=== PATIENT | female | born 1980 | race Caucasian/White ===

== ENCOUNTER 2019-06-27 14:43 | Emergency (ER) | payer OTHER ==
[~2019-06-27] VITALS: Ht 167.6 cm; Wt 111.1 kg
[~2019-06-27 14:43] MED LIST: CALCIUM500 M1 PO; CELEBREX100 MG PO; CELEXA10 MG PO; GAS RELIEF80 MG PO; IBUPROFEN800 MG PO; IRON18 MG PO; MULTI VITAMIN1 EACH PO; NEURONTIN300 MG PO; PERCOCET 5-3251 EACH PO; PROMETHAZINE HC25 M1 PO; PYRIDIUM200 MG PO; ULTRAM50 MG PO; VITAMIN D400 UNIT PO
--- OUTSIDE RECORDS SUMMARY | 2019-06-27 14:46 | XMS ---
PreManage Notification: HERMAN REEVES Security Telephone Triage Nurse Events No recent Security Events currently on file CRITERIA MET - [facility] - 2 Visits in 30 Days CARE PROVIDERS Hi Cisneros Community Health Worker 12/21/2018-Negrito Hood - PHONE: [phone] NEO SHAFFER Primary Care Current PHONE: Unknown MELI DARDEN Primary Care [facility] PHONE: Unknown Lizzy has no Care Guidelines for this patient. E.D. VISIT COUNT (12 MO.) 6 [facility] 1 VICKY AndersonMelisa TOTAL 7 NOTE: Visits indicate total known visits. ED/UCC VISIT TRACKING (12 MO.) 06/27/2019 14:44 [facility] [place] TYPE: Emergency COMPLAINT: - ANKLE, FINGER PAIN- INJ 06/26/2019 19:00 [facility] [place] TYPE: Emergency DIAGNOSES: - FALL - Contusion of left ankle, initial encounter 04/04/2019 20:40 [facility] [place] TYPE: Emergency DIAGNOSES: - bilateral knee pain - Pain in left knee - Pain in right knee 02/10/2019 22:19 [facility] [place] TYPE: Emergency DIAGNOSES: - congested cough - Pneumonia, unspecified organism 12/11/2018 23:22 [facility] [place] TYPE: Emergency DIAGNOSES: - Pain in left knee - L KNEE PAIN 11/30/2018 20:55 [facility] [place] TYPE: Emergency DIAGNOSES: - Pain in right knee - INJURY ON R KNEE 09/13/2018 02:42 [facility] [place] TYPE: Emergency DIAGNOSES: - Other viral agents as the cause of diseases classified elsewhere - Acute upper respiratory infection, unspecified - COUGHING,SORE THROAT,DIARRHEA INPATIENT VISIT TRACKING (12 MO.) No inpatient visits to display in this time frame [id number]
== END 2019-06-27 14:55 | disposition home or self-care (01) ==
LOC: ED 14:43
DX: M25.572 Pain in left ankle and joints of left foot (principal)

== ENCOUNTER 2021-06-16 20:48 | Emergency (ER) | payer OTHER ==
[~2021-06-16] VITALS: Ht 167.6 cm; Wt 112.5 kg
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
[2021-06-17] MEDS ORDERED: BUSPIRONE HCL5 MG PO (00:58)
[2021-06-17] MEDS ORDERED: DULOXETINE HCL30 MG PO (00:58)
== END 2021-06-17 02:12 | disposition home or self-care (01) ==
LOC: ED 20:48
DX: S96.912A Strain of unspecified muscle and tendon at ankle and foot level, left foot, initial encounter (principal); S76.012A Strain of muscle, fascia and tendon of left hip, initial encounter; S80.02XA Contusion of left knee, initial encounter; W19.XXXA Unspecified fall, initial encounter; Z88.0 Allergy status to penicillin; Z88.5 Allergy status to narcotic agent; Z88.6 Allergy status to analgesic agent; Z79.899 Other long term (current) drug therapy
CPT/HCPCS: 73502; 73560; 73610; 99283-25

== ENCOUNTER 2021-11-14 00:47 | Emergency (ER) | payer OTHER ==
[~2021-11-14] VITALS: Ht 167.6 cm; Wt 108.9 kg
[~2021-11-14 00:47] MED LIST changes: +BUSPIRONE HCL5 MG PO; +DULOXETINE HCL30 MG PO
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
[2021-11-14] MEDS ORDERED: medrol dose pack (02:32)
[2021-11-14] MEDS ORDERED: PERCOCET 5-3251 EACH PO (02:32)
== END 2021-11-14 02:45 | disposition home or self-care (01) ==
LOC: ED 00:47
DX: S39.012A Strain of muscle, fascia and tendon of lower back, initial encounter (principal); W01.10XA Fall on same level from slipping, tripping and stumbling with subsequent striking against unspecified object, initial encounter; J45.909 Unspecified asthma, uncomplicated; E66.9 Obesity, unspecified; Z88.0 Allergy status to penicillin; Z88.6 Allergy status to analgesic agent; Z88.8 Allergy status to other drugs, medicaments and biological substances; Z88.5 Allergy status to narcotic agent; Z79.899 Other long term (current) drug therapy
CPT/HCPCS: 72131; 96372; 99283-25; J1170; J3360

== ENCOUNTER 2021-11-24 21:33 | Emergency (ER) | payer OTHER ==
[~2021-11-24] VITALS: Ht 167.6 cm; Wt 106.1 kg
[~2021-11-24 21:33] MED LIST changes: +medrol dose pack
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
[2021-11-25] MEDS ORDERED: CIPRO500 MG PO (00:46)
[2021-11-25] MEDS ORDERED: FLOMAX0.4 MG PO (00:46)
[2021-11-25] MEDS ORDERED: ONDANSETRON ODT8 MG PO (00:46)
[2021-11-25] MEDS ORDERED: PERCOCET 5-3251 EACH PO (00:46)
== END 2021-11-25 01:03 | disposition home or self-care (01) ==
LOC: ED 21:33
DX: N20.0 Calculus of kidney (principal); J45.909 Unspecified asthma, uncomplicated; E66.9 Obesity, unspecified; Z88.0 Allergy status to penicillin; Z20.822 Contact with and (suspected) exposure to COVID-19; Z88.8 Allergy status to other drugs, medicaments and biological substances; Z88.5 Allergy status to narcotic agent; Z88.6 Allergy status to analgesic agent; Z79.899 Other long term (current) drug therapy
CPT/HCPCS: 36415; 74177; 80053; 81001; 85025; 96375; 96376; 99284-25; A9270; C9803; J2405; J3010; J7030; Q9967; U0003

== ENCOUNTER 2021-12-19 22:09 | Emergency (ER) | payer OTHER ==
[~2021-12-19] VITALS: Ht 167.6 cm; Wt 106.6 kg
[~2021-12-19 22:09] MED LIST changes: +CIPRO500 MG PO; +FLOMAX0.4 MG PO; +ONDANSETRON ODT8 MG PO
--- OUTSIDE RECORDS SUMMARY | 2021-12-19 22:12 | XMS ---
PreManage Notification: HERMAN REEVES Security Color Dipper Events No recent Security Events currently on file CRITERIA MET - [facility] - 2 Visits in 30 Days - PDMP CARE PROVIDERS NEO SHAFFER Nurse Practitioner: Family 06/28/2019-Current PHONE: Unknown Mily Oneill Community Health Worker 12/06/2020-Current PHONE: [phone] NARESH CARD [facility] 11/14/2021-Current PHONE: [phone] Care Guidelines exist for the following facilities: [facility] ( 09/13/2019 ) Care History Medical/Surgical 06/28/2019 [facility] - Patient is currently established with [facility]. If patient is seen in the ED during business hours. Please contact CHWs at [facility]. Care Recommendation: This patient has had [...] providing care. E.D. VISIT COUNT (12 MO.) [address] [facility] 1 [facility] ED 4 [facility]. TOTAL 6 NOTE: Visits indicate total known visits. ED/UCC VISIT TRACKING (12 MO.) 12/19/2021 22:09 [facility] [place] TYPE: Emergency COMPLAINT: - COUGH, SOB 11/24/2021 21:34 [facility] [place] TYPE: Emergency COMPLAINT: - ABD PAIN, N/V DIAGNOSES: - Other mcfp (current) drug therapy - Right lower quadrant pain - Allergy status to narcotic agent - Allergy status to other drugs, medicaments and biological substances - Unspecified asthma, uncomplicated - Obesity, unspecified - Calculus of kidney - Allergy status to penicillin - Allergy status to analgesic agent 11/14/2021 00:49 [facility] [place] TYPE: Emergency [...] Allergy status to narcotic agent - Other termite treater helper (current) drug therapy - Strain of muscle, fascia and tendon of lower back, initial encounter 06/16/2021 20:49 [facility] Pal TYPE: Emergency COMPLAINT: [...] of left hip, initial encounter - Other termite treater helper (current) drug therapy 06/01/2021 18:07 [facility] [place] TYPE: Emergency DIAGNOSES: - Skin Problem - Contusion of right forearm, initial encounter - Skin Complaint;Lumps 05/17/2021 17:40 [facility] No [place] TYPE: Emergency DIAGNOSES: - Contusion of right thumb without damage to nail, initial encounter - Unspecified fracture of navicular [scaphoid] bone of right wrist, initial encounter for closed fracture - Displaced fracture of proximal phalanx of unspecified finger, initial encounter for closed fracture - Thumb Injury INPATIENT VISIT TRACKING (12 MO.) No inpatient visits to display in this time frame [id number]
[2021-12-19] MEDS ORDERED: ALBUTEROL2.5 MG/3 M INH (22:21)
[2021-12-19] MEDS ORDERED: BUDESONIDE-FO10.2 GM (22:21)
[2021-12-19] MEDS ORDERED: ONDANSETRON ODT8 MG PO (23:21)
== END 2021-12-19 23:34 | disposition home or self-care (01) ==
LOC: ED 22:09
DX: J20.8 Acute bronchitis due to other specified organisms (principal); J45.909 Unspecified asthma, uncomplicated; E66.9 Obesity, unspecified; Z88.0 Allergy status to penicillin; Z88.8 Allergy status to other drugs, medicaments and biological substances; Z88.5 Allergy status to narcotic agent; Z88.6 Allergy status to analgesic agent; Z79.899 Other long term (current) drug therapy; Z79.51 Long term (current) use of inhaled steroids; Z20.822 Contact with and (suspected) exposure to COVID-19
CPT/HCPCS: 71045; 99285-25; A9270; C9803; U0003

== ENCOUNTER 2022-08-03 17:22 | Emergency (ER) | payer OTHER ==
[~2022-08-03] VITALS: Ht 167.6 cm; Wt 106.6 kg
[~2022-08-03 17:22] MED LIST changes: +ALBUTEROL2.5 MG/3 M INH; +BUDESONIDE-FO10.2 GM; +HYDROCODON-ACE1 EA10 PO
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
[2022-08-03] MEDS ORDERED: PREDNISONE20 MG PO (19:57)
== END 2022-08-03 20:17 | disposition home or self-care (01) ==
LOC: ED 17:22
DX: M79.672 Pain in left foot (principal); G89.29 Other chronic pain; M54.50 Low back pain, unspecified; J45.909 Unspecified asthma, uncomplicated; Z88.0 Allergy status to penicillin; Z88.6 Allergy status to analgesic agent; Z88.5 Allergy status to narcotic agent; Z88.8 Allergy status to other drugs, medicaments and biological substances; Z79.51 Long term (current) use of inhaled steroids; Z79.899 Other long term (current) drug therapy
CPT/HCPCS: 73630; 99283-25; A9270; J7512

== ENCOUNTER 2022-08-15 17:26 | Emergency (ER) | payer OTHER ==
[~2022-08-15] VITALS: Ht 167.6 cm; Wt 114.7 kg
[~2022-08-15 17:26] MED LIST changes: +PREDNISONE20 MG PO
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
[2022-08-15] MEDS ORDERED: HYDROCODON-ACE1 EA10 PO (18:00)
[2022-08-15] MEDS ORDERED: CLEOCIN HCL300 MG PO (18:00)
== END 2022-08-15 18:39 | disposition home or self-care (01) ==
LOC: ED 17:26
DX: K05.20 Aggressive periodontitis, unspecified (principal); J45.909 Unspecified asthma, uncomplicated; E66.9 Obesity, unspecified; E11.9 Type 2 diabetes mellitus without complications; Z88.8 Allergy status to other drugs, medicaments and biological substances; Z88.0 Allergy status to penicillin; Z88.6 Allergy status to analgesic agent; Z88.5 Allergy status to narcotic agent; Z79.899 Other long term (current) drug therapy
CPT/HCPCS: 99282; A9270

== ENCOUNTER 2022-08-19 00:17 | Emergency (ER) | payer OTHER ==
[~2022-08-19] VITALS: Ht 167.6 cm; Wt 111.0 kg
[~2022-08-19 00:17] MED LIST changes: +CLEOCIN HCL300 MG PO
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
== END 2022-08-19 01:01 | disposition home or self-care (01) ==
LOC: ED 00:17
DX: R53.81 Other malaise (principal); R53.83 Other fatigue; R11.0 Nausea; R09.81 Nasal congestion; J45.909 Unspecified asthma, uncomplicated; E11.9 Type 2 diabetes mellitus without complications; Z88.0 Allergy status to penicillin; Z88.6 Allergy status to analgesic agent; Z88.5 Allergy status to narcotic agent; Z88.8 Allergy status to other drugs, medicaments and biological substances
CPT/HCPCS: 99283

== ENCOUNTER 2022-10-14 00:09 | Emergency (ER) | payer OTHER ==
[~2022-10-14] VITALS: Ht 167.6 cm; Wt 110.2 kg
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
== END 2022-10-14 05:54 | disposition home or self-care (01) ==
LOC: ED 00:09
DX: S93.401A Sprain of unspecified ligament of right ankle, initial encounter (principal); J45.909 Unspecified asthma, uncomplicated; Z88.0 Allergy status to penicillin; Z88.6 Allergy status to analgesic agent; Z88.5 Allergy status to narcotic agent; Z88.8 Allergy status to other drugs, medicaments and biological substances; Z79.899 Other long term (current) drug therapy; W19.XXXA Unspecified fall, initial encounter
CPT/HCPCS: 73610; 99283-25; A9270

== ENCOUNTER 2022-12-01 18:34 | Emergency (ER) | payer OTHER ==
[~2022-12-01] VITALS: Ht 167.6 cm; Wt 113.3 kg
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
== END 2022-12-01 22:58 | disposition home or self-care (01) ==
LOC: ED 18:34
DX: S40.012A Contusion of left shoulder, initial encounter (principal); S30.0XXA Contusion of lower back and pelvis, initial encounter; Y04.8XXA Assault by other bodily force, initial encounter; J45.909 Unspecified asthma, uncomplicated; E66.9 Obesity, unspecified; Z88.0 Allergy status to penicillin; Z88.6 Allergy status to analgesic agent; Z88.8 Allergy status to other drugs, medicaments and biological substances; Z88.5 Allergy status to narcotic agent; Z79.899 Other long term (current) drug therapy
CPT/HCPCS: 36415; 70450; 71260; 72125; 73030; 74177; 80053; 85025; 99284-25; Q9967

== ENCOUNTER 2023-02-16 03:32 | Emergency (ER) | payer OTHER ==
[~2023-02-16] VITALS: Ht 167.6 cm; Wt 113.3 kg
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
[2023-02-16] MEDS ORDERED: PREGABALIN25 MG PO (03:43)
[2023-02-16] MEDS ORDERED: TRAMADOL HCL50 MG PO (03:54)
[2023-02-16 04:13] VITALS: BP 127/80
== END 2023-02-16 04:13 | disposition home or self-care (01) ==
LOC: ED 03:32
DX: S46.911A Strain of unspecified muscle, fascia and tendon at shoulder and upper arm level, right arm, initial encounter (principal); X50.0XXA Overexertion from strenuous movement or load, initial encounter; J45.909 Unspecified asthma, uncomplicated; E66.9 Obesity, unspecified; Z68.41 Body mass index [BMI] 40.0-44.9, adult; Z88.0 Allergy status to penicillin; Z88.5 Allergy status to narcotic agent; Z88.6 Allergy status to analgesic agent; Z79.899 Other long term (current) drug therapy
CPT/HCPCS: 73030; 99283-25; A9270

== ENCOUNTER 2023-09-15 19:24 | Emergency (ER) | payer OTHER ==
[~2023-09-15] VITALS: Ht 167.6 cm; Wt 110.5 kg
[~2023-09-15 19:24] MED LIST changes: +PREGABALIN25 MG PO; +TRAMADOL HCL50 MG PO
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
[2023-09-15 19:49] LABS: BASOPHILS 0.4 % (0-2); EOSINOPHILS 1.3 % (0-6); HEMATOCRIT 40.9 % (35.0-50.0); HEMOGLOBIN 13.9 g/dL (12.0-18.0); LYMPHOCYTES 23.1 % (24-44); MCHC 34.1 g/dl (30-36); MCV 93.9 fl (81-99); MONOCYTES 10.5 % (0-12); NEUTROPHILS 64.7 % (39-80); PLATELET COUNT 267 K/uL (140-440); RBC 4.35 M/ul (4.3-5.7); RDW 13.3 (10.5-15.0)
[2023-09-15 20:00] LABS: ALBUMIN 3.7 g/dL (3.4-5.0); ALKALINE PHOSPHATASE 178 U/L (46-116); ALT (SGPT) 13 U/L (14-59); ANION GAP 14.8 (7-21); AST (SGOT) 10 U/L (15-37); BILIRUBIN, TOTAL 0.4 ng/dL (0.2-1.0); BUN/CREATININE RATIO 18.47 (6.0-28.6); CALCIUM 8.6 mg/dL (8.5-10.1); CARBON DIOXIDE 26 mmol/L (21-32); CHLORIDE 103 mmol/L (98-107); CREATININE, SERUM 0.92 mg/dL (0.55-1.02); GLOMERULAR FILTRATION RATE,EST 79 mL/min (>60); MAGNESIUM 2.1 mg/dL (1.8-2.4); POTASSIUM 3.8 mmol/L (3.5-5.1); PROTEIN, TOTAL 7.8 g/dL (6.4-8.2); UREA NITROGEN 17 mg/dL (7-18)
[2023-09-15 21:06] VITALS: BP 119/86
--- NOTE | 2023-09-16 14:41 | EKG ---
[facility] [address] [facility] [place], [place] [address] Signed Normal sinus rhythm with sinus arrhythmia Normal ECG When compared with ECG of 15-SEP-2023 19:28, (Unconfirmed) No significant change was found Confirmed by ELLE JACQUES MD ([id number]) on 09/16/2023 2:41:21 PM Electronically Signed By: ELLE JACQUES 09/16/23 1441 PATIENT NAME: HERMAN MIMS Electrocardiogram DATE OF : 78 PHYSICIAN: ELLE JACQUES REPORT #: [id number] REPORT IS CONFIDENTIAL AND NOT TO BE RELEASED WITHOUT AUTHORIZATION
== END 2023-09-15 21:09 | disposition home or self-care (01) ==
LOC: ED 19:24
PROVIDERS: Family Medicine
DX: R07.89 Other chest pain (principal); J45.909 Unspecified asthma, uncomplicated; E66.9 Obesity, unspecified; Z68.39 Body mass index [BMI] 39.0-39.9, adult; Z88.0 Allergy status to penicillin; Z88.8 Allergy status to other drugs, medicaments and biological substances; Z88.5 Allergy status to narcotic agent; Z79.899 Other long term (current) drug therapy
CPT/HCPCS: 36415; 71045; 80053; 83735; 84484; 85025; 93005; 93010; 99285-25

== ENCOUNTER 2024-03-18 19:48 | Emergency (ER) | payer OTHER ==
[~2024-03-18] VITALS: Ht 167.6 cm; Wt 111.2 kg
[2024-03-18] MEDS ORDERED: TOPIRAMATE50 MG PO (20:01)
[2024-03-18] MEDS ORDERED: METOPROLOL SUCC25 MG PO (20:01)
[2024-03-18] MEDS ORDERED: FAMOTIDINE 20 MG/ 2 ML VIAL IV ONE (20:15)
[2024-03-18 20:31] LABS: BASOPHILS 0.5 % (0-2); EOSINOPHILS 1.2 % (0-6); HEMATOCRIT 37.4 % (35.0-50.0); HEMOGLOBIN 12.7 g/dL (12.0-18.0); LYMPHOCYTES 22.7 % (24-44); MCH 32.2 (27-36); MCHC 33.9 g/dl (30-36); MCV 94.9 fl (81-99); MONOCYTES 7.2 % (0-12); NEUTROPHILS 68.4 % (39-80); PLATELET COUNT 242 K/uL (140-440); RBC 3.94 M/ul (4.3-5.7); RDW 13.4 (10.5-15.0)
[2024-03-18 20:46] LABS: ALBUMIN 3.1 g/dL (3.4-5.0); ALBUMIN/GLOBULIN RATIO 0.89 (1.1-2.4); BILIRUBIN, TOTAL 0.2 ng/dL (0.2-1.0); BUN/CREATININE RATIO 6.38 (6.0-28.6); CALCIUM 7.9 mg/dL (8.5-10.1); CREATININE, SERUM 0.94 mg/dL (0.55-1.02); PROTEIN, TOTAL 6.6 g/dL (6.4-8.2)
[2024-03-18 21:03] LABS: INFLUENZA B NAA NEGATIVE (NEGATIVE); RESPIRATORY SYNCYTIAL VIR NAA NEGATIVE (NEGATIVE)
[2024-03-18 21:14] LABS: BILIRUBIN, URINE NEGATIVE (negative); BLOOD/HGB, URINE NEGATIVE (Negative); KETONE, URINE TRACE (Negative); LEUK ESTERASE, URINE NEGATIVE (negative); NITRITE, URINE NEGATIVE (negative)
[2024-03-18] MEDS ORDERED: OMEPRAZOLE20 MG PO (21:42)
[2024-03-18] MEDS ORDERED: K-TAB ER20 MEQ PO (21:42)
[2024-03-18] MEDS ORDERED: POTASSIUM CHLORIDE 10 MEQ TABCR PO ONE (21:45)
[2024-03-18 21:50] VITALS: BP 119/85
== END 2024-03-18 21:50 | disposition home or self-care (01) ==
LOC: ED 19:48
PROVIDERS: Internal Medicine
DX: K21.9 Gastro-esophageal reflux disease without esophagitis (principal); K52.9 Noninfective gastroenteritis and colitis, unspecified; E87.6 Hypokalemia; J45.909 Unspecified asthma, uncomplicated; E66.9 Obesity, unspecified; Z88.8 Allergy status to other drugs, medicaments and biological substances; Z88.0 Allergy status to penicillin; Z88.6 Allergy status to analgesic agent; Z88.5 Allergy status to narcotic agent; Z91.030 Bee allergy status; Z79.899 Other long term (current) drug therapy
CPT/HCPCS: 36415; 80053; 81003; 83690; 85025; 87502; 96374; 99284-25; A9270; U0002

== ENCOUNTER 2024-04-29 14:56 | Emergency (ER) | payer OTHER ==
[~2024-04-29] VITALS: Ht 167.6 cm; Wt 110.8 kg
[~2024-04-29 14:56] MED LIST changes: +K-TAB ER20 MEQ PO; +METOPROLOL SUCC25 MG PO; +OMEPRAZOLE20 MG PO; +TOPIRAMATE50 MG PO
[2024-04-29] MEDS ORDERED: IBUPROFEN 600 MG TAB PO ONE (18:45)
[2024-04-29] MEDS ORDERED: HYDROCODONE/ACETA 7.5/325 TAB PO ONE (18:45)
[2024-04-29] MEDS ORDERED: HYDROCODON-ACE1 EA11 PO (19:02)
[2024-04-29 19:45] VITALS: BP 124/88
== END 2024-04-29 19:55 | disposition home or self-care (01) ==
LOC: ED 14:56
DX: S83.91XA Sprain of unspecified site of right knee, initial encounter (principal); X50.1XXA Overexertion from prolonged static or awkward postures, initial encounter; J45.909 Unspecified asthma, uncomplicated; E66.9 Obesity, unspecified; Z68.39 Body mass index [BMI] 39.0-39.9, adult; Z88.0 Allergy status to penicillin; Z88.8 Allergy status to other drugs, medicaments and biological substances; Z88.5 Allergy status to narcotic agent; Z91.030 Bee allergy status; Z79.899 Other long term (current) drug therapy
CPT/HCPCS: 73560; A9270

== ENCOUNTER 2024-07-12 08:00 | Day surgery (SDC) | payer OTHER ==
[~2024-07-12] VITALS: Ht 167.6 cm; Wt 109.1 kg
[~2024-07-12 08:00] MED LIST changes: +CEFAZOLIN SODIUM 2 GM/20 ML SYR IV SCH; +DEXAMETHASONE SOD PHOS 4 MG/ML VIAL ONE; +FAMOTIDINE 20 MG/ 2 ML VIAL ONE; +HYDROCODON-ACE1 EA11 PO; +IBLOOD GLUCOSE TEST STRIP 1 EA TEST VI PRN; +KETOROLAC TROMETHAMINE 30 MG/ML VIAL ONE; +LACTATED RINGER'S 1,000 ML IV ONE; +LACTATED RINGER'S 1,000 ML IV SCH; +LIDOCAINE HCL 1% 5 ML SDV INJ ONE; +MEPERIDINE HCL 25 MG/1 ML VIAL IV PRN; +METOCLOPRAMIDE HCL 10 MG/2 ML SDV IV PRN; +METOCLOPRAMIDE HCL 10 MG/2 ML SDV ONE; +MIDAZOLAM HCL 2 MG/2 ML VIAL ONE; +NALOXONE HCL 0.4 MG SYR IV PRN; +PROCHLORPERAZINE EDISYLATE 10 MG/2 ML VIAL IV PRN; +TRANEXAMIC ACID 2,000 MG in SODIUM CHLORIDE 0.9% 100 ML IV SCH; +droPERidol 5 MG/2 ML VIAL IV PRN; +fentaNYL citrate 100 MCG/2 ML VIAL ONE; +fentaNYL citrate 50 MCG/ML SDV IV PRN; +ondansetron HCL 4 MG/2 ML VIAL IV PRN; +ondansetron HCL 4 MG/2 ML VIAL ONE; +propofoL 200 MG/20 ML VIAL ONE
[2024-07-12] MEDS ORDERED: TRANEXAMIC ACID 1,000 MG/10 ML AMP ONE (08:10)
[2024-07-12 08:16] VITALS: BP 121/90
[2024-07-12] MEDS ORDERED: ATROPINE SULFATE 1 MG/ML VIAL ONE (10:40)
[2024-07-12] MEDS ORDERED: HYDROCODONE/ACETA 7.5/325 TAB PO PRN (11:00)
[2024-07-12] MEDS ORDERED: HYDROCODON-ACE1 EA11 PO (11:02)
[2024-07-12] MEDS ORDERED: ACETAMINOPHEN 1,000 MG/100 ML VIAL IV ONE (11:30)
[2024-07-12] MEDS ORDERED: BUPIVACAINE HCL 0.5% 30 ML VIAL ONE (11:57)
[2024-07-12 12:47] VITALS: BP 135/74
--- NOTE | 2024-07-12 12:52 | NUR ---
CALL LIGHT GIVEN WATER CRACKDA VALENTINE. STATES SHE DOESNT HAVE CRUTCHES.
--- NOTE | 2024-07-12 13:34 | NUR ---
OFF 02 STAYING AT 98% ON ROOM AIR.
[2024-07-12 13:36] VITALS: BP 112/94
--- NOTE | 2024-07-12 13:39 | NUR ---
CALLED TO CONTOUR PATH TAPE MILL OPERATOR CRUTCHES.
[2024-07-12 14:15] VITALS: BP 110/73
--- NOTE | 2024-07-12 14:15 | NUR ---
PT LAYING IN BED, STATES RIGHT LEG FEELS NUMB BUT WHEN MOVES LEG HAS PAIN. RATES PAIN 6/10. WOULD LIKE SOMETHING FOR PAIN. LUNCH ORDERS. PROVIDED PT WITH A SPRITE. 1420-PT UP TO BEDSIDE COMMODE WTIH 1 RN ASSIST. PT REMINDER TOE TOUCH ONLY ON RIGHT LEG. PT VOIDS. 1424-PT BACK TO BED WITH 1 RN ASSIST. LUNCH ARRIVED. NO OTHER NEEDS AT THIS TMIE. CALL LIGHT WITHIN REACH.
[2024-07-12 15:21] VITALS: BP 127/91
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
--- NOTE | 2024-07-12 18:25 | NUR ---
LE 1700-PT STILL TRYING TO GET A HOLD OF . STATES AT CHECK IN HE HAD TO BE IN COURT FROM [id number]. DID DROP OF CRUTCHES AND WALKER AROUND 1430 BUT LEFT AGAIN. LE 1706-PHONE CALL TO ARC WELDER WITH CURRENT SITUATION. LE 1715-THIS RN LEFT MESSAGE ON HUSBANDS PHONE. LE 1727- STILL NOT ANSWERING PHONE CALLS FROM PT OR THIS RN. LE 1730-ARC WELDER IN DAY SURGERY. DECISION MADE TO DO WELFARE CHECK. LE 1733-THIS RN CALLS DISPATCH FOR WELFARE CHECK. LE 1743-PHONE CALL AGAIN TO HUSBANDS NUMBER WITHOUT ANSEWER. LE 1802- CALLS BACK AND CALL GIVEN TO ARC WELDER.
--- NOTE | 2024-07-12 18:30 | NUR ---
SPOKE WITH PT'S AT LENGTH, WHO IS REPORTING HE WILL NOT BE PICKING UP HIS DUE TO "DOMESTIC ISSUES". SPOKE WITH OFFICER JOSE WHO COMPLETED THE WELFARE CHECK ON THE , AND REPORTS THIS COUPLE IS KNOWN TO HIM. OFFICER JOSE OFFERED TO COME GIVE A COURTESY RIDE HOME FOR THE PT. PT MOVED TO CCU IN ORDER TO CLOSE DAY SURGERY. OFFICER JOSE IN SHORTLY AFTER, PT TAKEN BY WC TO OFFICER'S CAR. PT DISCHARGING WITH WALKER AND CRUTCHES. PT HAS DC INSTRUCTIONS, AND PERSONAL BELONGINGS.
--- NOTE | 2024-07-16 06:52 | OR ---
[facility] [address] [place], [place] [address] Signed DATE OF OPERATION: 07/12/2024 SURGEON: Grant Gay MD PREOPERATIVE DIAGNOSIS: Medial meniscus tear, lateral meniscus tear, right knee. POSTOPERATIVE DIAGNOSIS: Medial meniscus tear, lateral meniscus tear, right knee, OCD, lateral femoral condyle. PROCEDURES PERFORMED: 1. Right knee arthroscopy with partial medial and lateral meniscectomies. 2. Abrasion chondroplasty, lateral femoral condyle. MEDICAL RECORD [employer]IANS TEACHER: Keely Gates PA-C. ANESTHESIA: General. BLOOD LOSS: Minimal. BRIEF HISTORY: Bianca is a 43-year-old female with pain and instability in her knee. MRI was consistent with the above. The risks and benefits of operative treatment were discussed with her and she elected to proceed. Once consent was obtained, she was taken to the operating room. After adequate anesthesia, she was placed on the operating table. The left leg was flexed, abducted and externally rotated on a well-padded leg guillen. She was noted to have multiple small bruises throughout her lower extremities and a little bit on her arms. None of these interfered with the incisions. The leg was prepped and draped in a standard sterile fashion. The portal sites were injected with 0.25% Marcaine with epinephrine. Standard inferolateral and superolateral portals were made and the scope was introduced in the knee. ARTHROSCOPIC FINDINGS: Moderate synovitis was noted throughout the knee. 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 Medial and lateral gutters were clear. ACL and PCL were intact. Medial compartment showed a small tear in the posteromedial meniscus. The lateral compartment showed a posterior lateral tear that again was small. Electronically Signed By: GRANT GAY MD 07/16/24 0652 PATIENT NAME: BIANCA MIMS OPERATIVE REPORT DATE OF : 78 REPORT #: [id number] PHYSICIAN: GRANT GAY MD PCP: HANNAH CARR MD REPORT IS CONFIDENTIAL AND NOT TO BE RELEASED WITHOUT AUTHORIZATION [facility] [address] [place], [place] [address] Signed There was a 5 x 5 mm area of full-thickness chondral loss in the lateral aspect of the lateral femoral condyle. There was a large unstable flap associated with this. DESCRIPTION OF OPERATION: Standard anteromedial portal was established using a spinal needle. The meniscus tears were trimmed back to stable rims anteriorly and posteriorly and were feathered out using the shaver. We then evaluated the lesion on the lateral femoral condyle. There was a large unstable flap and this was removed using the ring curette. We then curetted the base of the lesion creating a good bony bleeding bed. I did not feel that it was big enough to use an ice pick efficiently. The stable chondral surfaces surrounding this were then carefully curetted into a 90-degree configuration. The knee was washed out one final time. The scope was withdrawn. Portals were closed with 3-0 nylon and dressed with Adaptic, ABD, and South wrap. She tolerated the procedure well. All sponge, needle, and instrument counts were correct. Grant Gay MD BA/MODL /[id number] Copies: ~ Electronically Signed By: GRANT GAY MD 07/16/24 0652 PATIENT NAME: BIANCA MIMS OPERATIVE REPORT DATE OF : 78 REPORT #: [id number] PHYSICIAN: GRANT GAY MD PCP: HANNAH CARR MD REPORT IS CONFIDENTIAL AND NOT TO BE RELEASED WITHOUT AUTHORIZATION
== END 2024-07-12 12:40 | disposition home or self-care (01) ==
LOC: DS 08:00
PROVIDERS: ATTEND Specialist
PROC: 0SBC4ZZ Excision of Right Knee Joint, Percutaneous Endoscopic Approach (ICD-10-PCS; 2024-07-12)
PROC: 0SBC4ZZ Excision of Right Knee Joint, Percutaneous Endoscopic Approach (ICD-10-PCS; principal; 2024-07-12 11:35)
DX: S83.241A Other tear of medial meniscus, current injury, right knee, initial encounter (principal); S83.281A Other tear of lateral meniscus, current injury, right knee, initial encounter; M22.41 Chondromalacia patellae, right knee; J45.909 Unspecified asthma, uncomplicated; F32.9 Major depressive disorder, single episode, unspecified; R56.9 Unspecified convulsions; Z88.0 Allergy status to penicillin; Z88.5 Allergy status to narcotic agent; Z88.8 Allergy status to other drugs, medicaments and biological substances; Z79.899 Other long term (current) drug therapy; X58.XXXA Exposure to other specified factors, initial encounter
CPT/HCPCS: 01400; A9270; J0131; J0461; J0690; J1100; J1885; J2250; J2405; J2704; J2765; J3010; J7121

== ENCOUNTER 2024-11-26 09:45 | Emergency (ER) | payer OTHER ==
[~2024-11-26] VITALS: Ht 167.6 cm; Wt 102.1 kg
[2024-11-26 11:00] LABS: SOURCE, WET MOUNT VAGINAL
[2024-11-26 11:01] LABS: BACTERIA, WET MOUNT NEGATIVE (NEGATIVE); CLUE CELLS, WET MOUNT NEGATIVE (NEGATIVE); EPITHELIAL CELLS, WET MOUNT 1+ (NEGATIVE); RBC, WET MOUNT NEGATIVE (NEGATIVE)
[2024-11-26 11:05] LABS: TRICHOMONAS, WET MOUNT POSITIVE (NEGATIVE)
[2024-11-26 11:06] LABS: YEAST, WET MOUNT NEGATIVE (NEGATIVE)
[2024-11-26 11:08] LABS: WBC, WET MOUNT 3+ (NEGATIVE)
[2024-11-26] MEDS ORDERED: CEFTRIAXONE SOD 500 MG VIAL IM ONE (11:30)
[2024-11-26] MEDS ORDERED: metroNIDAZOLE 250 MG TAB PO ONE (11:30)
[2024-11-26] MEDS ORDERED: DOXYCYCLINE HYCLATE 100 MG CAP PO ONE (11:30)
[2024-11-26 11:47] VITALS: BP 133/92
[2024-11-26 12:29] LABS: N. GONORRRHOEAE BY PCR NOT DETECTED (NOT DETECT)
== END 2024-11-26 11:30 | disposition home or self-care (01) ==
LOC: ED 09:45
PROVIDERS: Emergency Medicine
DX: A59.01 Trichomonal vulvovaginitis (principal); J45.909 Unspecified asthma, uncomplicated; M41.9 Scoliosis, unspecified; E66.9 Obesity, unspecified; Z91.030 Bee allergy status; Z88.0 Allergy status to penicillin; Z88.6 Allergy status to analgesic agent; Z88.8 Allergy status to other drugs, medicaments and biological substances; Z88.5 Allergy status to narcotic agent; Z79.899 Other long term (current) drug therapy
CPT/HCPCS: 87210; 87491; 99283; J0696

== ENCOUNTER 2024-12-16 21:57 | Emergency (ER) | payer OTHER ==
[~2024-12-16] VITALS: Ht 167.6 cm; Wt 102.2 kg
[~2024-12-16 21:57] MED LIST changes: -CEFAZOLIN SODIUM 2 GM/20 ML SYR IV SCH; -DEXAMETHASONE SOD PHOS 4 MG/ML VIAL ONE; +DOXYCYCLINE HY100 MG PO; -FAMOTIDINE 20 MG/ 2 ML VIAL ONE; -IBLOOD GLUCOSE TEST STRIP 1 EA TEST VI PRN; -KETOROLAC TROMETHAMINE 30 MG/ML VIAL ONE; -LACTATED RINGER'S 1,000 ML IV ONE; -LACTATED RINGER'S 1,000 ML IV SCH; -LIDOCAINE HCL 1% 5 ML SDV INJ ONE; -MEPERIDINE HCL 25 MG/1 ML VIAL IV PRN; -METOCLOPRAMIDE HCL 10 MG/2 ML SDV IV PRN; -METOCLOPRAMIDE HCL 10 MG/2 ML SDV ONE; +METRONIDAZOLE500 MG PO; -MIDAZOLAM HCL 2 MG/2 ML VIAL ONE; -NALOXONE HCL 0.4 MG SYR IV PRN; -PROCHLORPERAZINE EDISYLATE 10 MG/2 ML VIAL IV PRN; -TRANEXAMIC ACID 2,000 MG in SODIUM CHLORIDE 0.9% 100 ML IV SCH; -droPERidol 5 MG/2 ML VIAL IV PRN; -fentaNYL citrate 100 MCG/2 ML VIAL ONE; -fentaNYL citrate 50 MCG/ML SDV IV PRN; -ondansetron HCL 4 MG/2 ML VIAL IV PRN; -ondansetron HCL 4 MG/2 ML VIAL ONE; -propofoL 200 MG/20 ML VIAL ONE
[2024-12-17] MEDS ORDERED: BUPIVACAINE 0.25% W/ EPI 30 ML SDV DENTAL PRN (02:45)
[2024-12-17] MEDS ORDERED: CLEOCIN HCL300 MG PO (03:05)
[2024-12-17 03:14] VITALS: BP 141/88
[2024-12-17] MEDS ORDERED: HYDROCODONE BIT/ACETAMINOPHEN 5/325 MG 1 TAB HOME.PACK PO ONE (03:15)
[2024-12-17] MEDS ORDERED: clindamycin HCL 300 MG HOME.PACK PO ONE (03:15)
== END 2024-12-17 03:15 | disposition home or self-care (01) ==
LOC: ED 21:57
DX: K04.7 Periapical abscess without sinus (principal); J45.909 Unspecified asthma, uncomplicated; E66.9 Obesity, unspecified; Z68.36 Body mass index [BMI] 36.0-36.9, adult; Z88.0 Allergy status to penicillin; Z88.8 Allergy status to other drugs, medicaments and biological substances; Z88.5 Allergy status to narcotic agent; Z91.030 Bee allergy status; Z79.899 Other long term (current) drug therapy
CPT/HCPCS: 64400; 99282-25; A9270